=== PATIENT | female | born 1990 ===

== ENCOUNTER 2024-12-23 17:10 | Emergency (ER) | payer BC, SELFPAY ==
[2024-12-23 17:12] VITALS: BP 136/78
[2024-12-23 17:25] LABS: Hematocrit 43.9 % (37.0-47.0); Hemoglobin 14.8 g/dL (12.0-16.0); Mean Corp Hgb Conc. 33.7 g/dL (33.0-37.0); Mean Corpuscular Volume 85.6 fL (81.0-99.0); Nucleated Red Blood Cells % 0 %; Platelet Count 206 10^3/uL (130-400); Red Cell Dist. Width 13.1 % (11.5-14.5)
[2024-12-23 17:39] LABS: HCG, Serum Qualitative Screen Negative
[2024-12-23 17:44] LABS: ALT (SGPT) 20 U/L (0-35); AST (SGOT) 24 U/L (14-36); Albumin 4.9 g/dl (3.5-5.0); Alkaline Phosphatase 80 U/L (38-126); Blood Urea Nitrogen 21 mg/dl (7-17); Calcium 9.2 mg/dl (8.4-10.2); Carbon Dioxide 27 mmol/L (22-30); Chloride 104 mmol/L (98-107); Glucose 118 mg/dl (70-99); Lipase 92 U/L (23-300); Potassium 4.1 mmol/L (3.5-5.1); Sodium 139 mmol/L (135-145); Total Protein 8.0 g/dl (6.3-8.2); eGFR > 60.00
--- NOTE | 2024-12-23 18:20 | ED.GENMED ---
History of Present Illness
General
Chief Complaint: Abdominal Pain
Source: patient
Exam Limitations: none
Time Seen by Provider: 12/23/24 17:57
History of Present Illness
History of Present Illness:
33yoF with no significant past medical history presenting with her for evaluation of abdominal pain. Symptoms began around 1pm this afternoon. She reports pain in her epigastric region which feels like a punch. Pain comes in waves and is
associated with vomiting. She has vomited approximately 6x since this afternoon. Her pain temporarily improves after vomiting. She denies any associated diarrhea, fevers, urinary symptoms. She ate a crawley breakfast sandwich at [facility] this morning
and sushi and pizza yesterday. No known sick contacts. Only previous abdominal surgeries were 2 sections.
Past History
Past History
ED Past Medical History: None
ED Past Surgical History:
Social History
Tobacco: Non-smoker
Alcohol: None
Phy Exam
Physical Exam
Physical Exam:
Appears uncomfortable, non-toxic
General Physical Exam
General Presentation: well appearing
General Skin: warm and dry
General Habitus: normal
General Mental: alert
ENT Exam
ENT Exam: normocephalic
Cardiovascular Exam
Cardiovascular Exam: regular rate/rhythm and no murmur
Pulmonary Exam
Pulmonary Exam: lungs clear, no respiratory distress, no rales, no crackles, no rhonchi and no wheezing
Gastrointestinal Exam
Gastrointestinal Exam: soft, non distended and other (+Tenderness in epigastric region. Abdomen soft, non-distended. No rebound or guarding.)
Neurological Exam
Neurological Exam: alert
Loyd Coma Scale
Eye Opening: Spontaneous
Verbal Response: Oriented
Motor Response: Obeys Commands
GCS Total Score: 15
Skin Exam
Skin Exam: normal color and warm/dry
Psychiatric Exam
Psychiatric Exam: normal mood/affect
Course
Orders/Labs/Results
Orders:
Orders
12/23/24 17:15
Test Result ONCE
12/23/24 17:18
Comprehensive Metabolic Panel Urgent
HCG, Serum Qualitative Screen Urgent
Comment: Notify provider if positive test present
Lipase Urgent
12/23/24 17:19
Complete Blood Count/With Diff Urgent
12/23/24 18:17
0.9% Sodium Chloride 1000 ml [Nss] 1,000 ml IV BOLUS
Famotidine [Pepcid] 20 mg IV NOW STA
Ketorolac [Toradol] 15 mg IV NOW STA
Ondansetron Injectable [Zofran] 4 mg IV NOW STA
US Abdomen Complete/Upper Urgent
Comment:
Reason For Exam: epigastric pain
Abnormal Lab Results
12/23/24 12/23/24
17:18 17:19
Abs Immat Gran (auto) 0.1 H 10^3/uL
(0-0.05)
Absolute Neuts (auto) 10.1 H 10^3/uL
(1.4-6.5)
Absolute Lymphs (auto) 0.3 L 10^3/uL
(1.2-3.4)
Neutrophils % 93.3 H %
(42.2-75.2)
Lymphocytes % 2.5 L %
(20.5-51.1)
BUN 21 H mg/dl
(7-17)
Glucose 118 H mg/dl
(70-99)
12/23/24 17:19
12/23/24 17:18
Vital Signs
Initial and Last Documented VS:
Initial Vital Signs
Temp Pulse Resp BP Pulse Ox
98.8 F 106 18 136/78 98
12/23/24 17:12 12/23/24 17:12 12/23/24 17:12 12/23/24 17:12 12/23/24 17:12
Last Documented Vital Signs
Temp Pulse Resp BP Pulse Ox
98.8 F 106 18 136/78 98
12/23/24 17:12 12/23/24 17:12 12/23/24 17:12 12/23/24 17:12 12/23/24 18:22
MDM/Problems Addressed
Differential Diagnosis Includes:
33yoF here with epigastric pain and n/v that began at 1pm this afternoon. No diarrhea. HR 106, remainder of vitals stable. She appears uncomfortable but is nontoxic. No signs of peritonitis on abdominal exam. Differential diagnosis includes but
is not limited to: Food poisoning, viral illness, biliary colic, pancreatitis, gastritis, dehydration
Initial ED plan: Abdominal labs obtained in triage which are unremarkable. Lipase, LFTs, and renal function normal. hCG negative. Will obtain upper abdominal ultrasound. IV Zofran, Toradol, Pepcid, and fluid bolus for symptoms.
*Pulse Oximetry
SaO2: 98
Oxygen Mode of Delivery: Room air
Patient hypoxic: no (98%)
*Critical Care Note
Total Time (30-74mins, 75-104mins- exclusive of procedures): Not Applicable
Update Note
Update Note:
Ultrasound negative for acute findings. Patient feeling significantly improved on reassessment. She was able to tolerate p.o. challenge. Patient did receive information that several of her coworkers are also experiencing similar symptoms
suggesting viral illness. Patient stable for discharge. Prescription for Zofran provided and supportive care discussed. Advised follow-up with PCP and ED return precautions reviewed. She was discharged stable for
ED Attending Note
-
Portions of this chart may have been created with voice recognition software.� Occasional wrong word or��sound alike� substitutions may have occurred due to the inherent limitations of voice recognition software.
Discharge Plan
Departure
Patient Disposition: Home (Routine Discharge)
Date of Disposition: 12/23/24
Time of Disposition: 20:42
Patient with high blood pressure during this ER visit?: No
Discharge Problem:
Nausea and vomiting, Epigastric abdominal pain
Instructions: Nausea and Vomiting, Adult (DC)
Prescriptions:
New
ondansetron 4 mg tablet,disintegrating
4 mg PO Q6H PRN (Reason: nausea and vomiting) Qty: 20 0RF
No Action
Vitamin Tablet
1 tab PO DAILY
dicloxacillin 500 MG capsule
500 mg PO QID Qty: 40 0RF
Referrals:
Raghavendra Elias MD [Family Provider, Internal Medicine]
Stand Alone Forms: Return to Work
Activity Restrictions/Additional Instructions:
Take Zofran as needed for nausea. Drink plenty of fluids and hydrate. Advance slowly to a bland diet (bananas, rice, applesauce, toast).
Please follow-up with your family doctor. Return to the ER with any new or worsening symptoms.
Interventions
Interventions:
*Risk Screen - Suicide Last Done: 12/23/24 17:12
*Neglect/Abuse Screening Last Done: 12/23/24 17:12
Discharge Date and Time
Print Language: AMHARIC
[2024-12-23] MEDS: ZOFRAN 4 MG IV (18:50)
[2024-12-23] MEDS: TORADOL 15 MG IV (18:51)
[2024-12-23] MEDS: NSS 1000 IV (18:51)
[2024-12-23] MEDS: PEPCID 20 MG IV (18:51)
== END 2024-12-23 21:25 | disposition home or self-care (01) ==
LOC: EMR 17:10
PROVIDERS: EMERGENCY PHYSICIAN Emergency Medicine; FAMILY PHYSICIAN Internal Medicine
DX: R10.13 Epigastric pain (principal); R11.2 Nausea with vomiting, unspecified
CPT/HCPCS: 96374; 96375; 96361; 99284; 76700; 80053; 83690; 84703; 85025